=== PATIENT | male | born 1955 | race Caucasian/White ===

== ENCOUNTER 2017-06-09 12:04 | Emergency (ER) | payer SELFPAY ==
[2017-06-09] MEDS ORDERED: NARCAN INJ IVP ONE ×2 (12:10→12:11)
[2017-06-09] MEDS ORDERED: ROMAZICON INJ 0.5 MG IVP ONE ×2 (12:11→12:19)
[2017-06-09] MEDS ORDERED: NARCAN INJ ONE (12:13)
[2017-06-09 12:14] VITALS: BMI 32.8
[2017-06-09] MEDS ORDERED: ROMAZICON INJ 0.5 MG ONE (12:14)
--- NOTE | 2017-06-09 12:20 | DR.GENAD ---
HPI - Complaint/Symptoms Chief Complaint Doctors Comments: Patient presented Via EMS with possible ingestion of narcotic medication. He was at [facility] ED on yesterday for headache. He presents today sedated, responsive to painful stimuli and minimal results to Narcan and flumazinil. Family members states that patient c/ o severe headache this morning with profuse sweating. He requested to come to the ED today. Past medical history heart disease with stents (3-4) a three pack per day smoker. He is trucking manager by trade. PMH - PMH Past Medical History: Coronary Artery Disease, Hypertension, [place] Past Surgical History: Yes Surgical History: Angioplasty/Stents - Family History Family Medical History: Cancer, Hypertension - Social History Do you use any recreational Drugs:: No ROS - Review of Systems Eyes: No Symptoms Reported ENTM: No Symptoms Reported Respiratoy: No Symptoms Reported Cardiovascular: No Symptoms Reported Gastrointestinal/Abdominal: No Symptoms Reported Genitourinary: No Symptoms Reported Neurological: No Symptoms Reported Musculoskeletal: No Symptoms Reported Integumentary: No Symptoms Reported Hematologic/Lymphatic: No Symptoms Reported Endocrine: No Symptoms Reported Psychiatric: No Symptoms Reported All Other Systems: Reviewed and Negative PE - Vital Signs Vitals: Temperature 97.5 F Pulse Rate [Apical] 51 Pulse Rate 45 Respiratory Rate 18 Blood Pressure [Right Arm] 169/76 Blood Pressure 166/89 O2 Sat by Pulse Oximetry 95 - General General Appearance: Alert, In No Apparent Distress, Obtunded - Head Head Exam: Normal Inspection, Atraumatic - Eyes Eye exam: Normal Appearance, PERRL, EOMI - ENT ENT Exam: Normal Exam, Normal Oropharynx External Ear Exam: Normal External Inspection TM/Canal Exam: Bilateral Normal Nose Exam: Normal Nose Exam Mouth Exam: Normal Inspection Throat Exam: Normal Inspection - Neck Neck Exam: Normal Inspection - Chest Chest Inspection: Normal Inspection - Respiratory Respiratory Exam: Normal Lung Sounds Bilat Respiratory Exam: Bilateral Clear to Auscultation - Cardiovascular Cardiovascular Exam: Regular Rate, Normal Rhythm - Abdominal Exam Abdominal Exam: Normal Inspection, Normal Bowel Sounds Course - Consultation Called: 14:50 (Accepted for transfer ([facility])) ROR - Labs Reviewed Result Diagrams: 06/09/17 12:15 06/09/17 12:15 Laboratory: WBC 9.6 X10^3/uL (3.6-10.0) 06/09/17 12:15 RBC 6.43 X10^6/uL (4.7-6.0) H 06/09/17 12:15 Hgb 19.8 g/dL (13.5-18.0) H* 06/09/17 12:15 Hct 57.3 % (42.0-54.0) H* 06/09/17 12:15 MCV 89.1 fL (80.0-100.0) 06/09/17 12:15 MCH 30.7 pg (27.0-34.0) 06/09/17 12:15 MCHC 34.5 g/dL (33.0-35.0) 06/09/17 12:15 RDW 13.6 % (11.6-16.5) 06/09/17 12:15 Plt Count 156 X10^3/uL (150.0-450.0) 06/09/17 12:15 Plt Count Comment Adequate (ADEQUATE) 06/09/17 12:15 MPV 8.4 fL (7.4-11.0) 06/09/17 12:15 Neut % 78.9 % (42.0-75.0) H 06/09/17 12:15 Lymph % 13.1 % (21.0-51.0) L 06/09/17 12:15 [place] % 6.4 % (0.0-13.0) 06/09/17 12:15 Eos % 0.7 % (0.9-2.9) L 06/09/17 12:15 Baso % 0.9 % (0.2-1.0) 06/09/17 12:15 Neut # 7.6 x10^3/uL (2.2-4.8) H 06/09/17 12:15 Lymph # 1.3 X10^3/uL (1.3-2.9) 06/09/17 12:15 [place] # 0.6 x10^3/uL (0.3-0.8) 06/09/17 12:15 Eos # 0.1 x10^3/uL (0.0-0.2) 06/09/17 12:15 Baso # 0.1 X10^3/uL (0.0-0.1) 06/09/17 12:15 Absolute Nucleated RBC 0.1 /100WBC 06/09/17 12:15 Plt Morphology Comment Normal (NORMAL) 06/09/17 12:15 RBC Morphology Normal (NORMAL) 06/09/17 12:15 INR Target Range - 06/09/17 12:15 INR 0.98 (0.8-1.3) 06/09/17 12:15 Sodium 134 mmol/L (136-145) L 06/09/17 12:15 Corrected Sodium 137 mmol/L (136-145) 06/09/17 12:15 Potassium 3.5 mmol/L (3.5-5.1) 06/09/17 12:15 Chloride 97 mmol/L (98-107) L 06/09/17 12:15 Carbon Dioxide 30.5 mmol/L (21-32) 06/09/17 12:15 BUN 24 mg/dL (7-18) H 06/09/17 12:15 Creatinine 1.97 mg/dL (0.70-1.30) H 06/09/17 12:15 Est GFR (MDRD) Af Amer 45 (>60) L 06/09/17 12:15 Est GFR (MDRD) Non-Af 37 (>60) L 06/09/17 12:15 Glucose 230 mg/dL (65-99) H 06/09/17 12:15 Calcium 9.0 mg/dL (8.5-10.1) 06/09/17 12:15 Specimen Type Catherized urine 06/09/17 12:38 Urine Color Yellow (YELLOW) 06/09/17 12:38 Urine Appearance Slightly hazy (CLEAR) 06/09/17 12:38 Urine pH 5.0 (5.0 - 8.0) 06/09/17 12:38 Ur Specific [place] 1.025 (1.000-1.030) 06/09/17 12:38 Urine Protein 3+ (NEGATIVE) 06/09/17 12:38 Urine Glucose (UA) 2+ (NEGATIVE) 06/09/17 12:38 Urine Ketones Negative (NEGATIVE) 06/09/17 12:38 Urine Occult Blood 3+ (NEGATIVE) 06/09/17 12:38 Urine Nitrite Negative (NEGATIVE) 06/09/17 12:38 Urine Bilirubin Negative (NEGATIVE) 06/09/17 12:38 Urine Urobilinogen Normal (NORMAL) 06/09/17 12:38 Ur Leukocyte Esterase 1+ (NEGATIVE) 06/09/17 12:38 Urine RBC 01 - 04 /HPF (NEGATIVE) 06/09/17 12:38 Urine WBC Rare /HPF (NEGATIVE) 06/09/17 12:38 Ur Squamous Epith Cells Few /HPF (NEGATIVE) 06/09/17 12:38 Ur Renal Epithelial Cell Rare /HPF (NEGATIVE) 06/09/17 12:38 Amorphous Sediment 2+ /HPF (NEGATIVE) 06/09/17 12:38 Urine Bacteria Negative /HPF (NEGATIVE) 06/09/17 12:38 Hyaline Casts Few /LPF (NEGATIVE) 06/09/17 12:38 Ur Culture Indicated? No/not indicated 06/09/17 12:38 Urine Opiates Screen Negative (NEG=<300) 06/09/17 12:38 Urine Methadone Screen Negative (NEG=<300) 06/09/17 12:38 Ur Barbiturates Screen Negative (NEG=<200) 06/09/17 12:38 Ur Phencyclidine Scrn Negative (NEG=<25) 06/09/17 12:38 Ur Amphetamines Screen Negative (NEG=<1000) 06/09/17 12:38 U Benzodiazepines Scrn Negative (NEG=<200) 06/09/17 12:38 Urine Cocaine Screen Negative (NEG=<300) 06/09/17 12:38 U Marijuana (THC) Screen Negative (NEG=<50) 06/09/17 12:38 - XRAY XRAY Interpreted by: Radiologist (CT Brain w/o:Findings suggestive of a large acute nonhemorrhage CVA in the distribution of the right middle cerebral artery with findings of edema that had ceveloped since the prior examination 06/08/17 performed at [facility]) - Diagnosis Discharge Problem: Non-hemorrhagic cerebrovascular accident (CVA) - Discharge Plan Condition: Stable - Follow ups/Referrals Follow ups/Referrals: MERRILL HOOK [Primary Care Provider] - 3 days - Instructions
[2017-06-09 12:24] LABS: BASOPHILS # (AUTO) 0.1 X10^3/uL (0.0-0.1); BASOPHILS % (AUTO) 0.9 % (0.2-1.0); EOSINOPHILS # (AUTO) 0.1 x10^3/uL (0.0-0.2); EOSINOPHILS % (AUTO) 0.7 % (0.9-2.9); LYMPHOCYTES % (AUTO) 13.1 % (21.0-51.0); MEAN PLATELET VOLUME 8.4 fL (7.4-11.0); MONOCYTES # (AUTO) 0.6 x10^3/uL (0.3-0.8); MONOCYTES % (AUTO) 6.4 % (0.0-13.0); NEUTROPHILS % (AUTO) 78.9 % (42.0-75.0)
[2017-06-09 12:29] LABS: CARBON DIOXIDE 30.5 mmol/L (21-32); CREATININE 1.97 mg/dL (0.70-1.30)
[2017-06-09 12:36] LABS: LYMPHOCYTES # (AUTO) 1.3 X10^3/uL (1.3-2.9); MEAN CORPUSCULAR HEMOGLOBIN 30.7 pg (27.0-34.0); MEAN CORPUSCULAR HGB CONC 34.5 g/dL (33.0-35.0); MEAN CORPUSCULAR VOLUME 89.1 fL (80.0-100.0); NEUTROPHILS # (AUTO) 7.6 x10^3/uL (2.2-4.8); PLATELET COUNT 156 X10^3/uL (150.0-450.0); RED BLOOD COUNT 6.43 X10^6/uL (4.7-6.0); RED CELL DISTRIBUTION WIDTH 13.6 % (11.6-16.5); WHITE BLOOD COUNT 9.6 X10^3/uL (3.6-10.0)
[2017-06-09] MEDS ORDERED: NS 1000 ML 1,000 ML ONE (12:43)
[2017-06-09 12:55] LABS: HEMATOCRIT 57.3 % (42.0-54.0); HEMOGLOBIN 19.8 g/dL (13.5-18.0)
[2017-06-09 12:59] LABS: PLATELET MORPHOLOGY COMMENT NORMAL (NORMAL)
[2017-06-09] MEDS ORDERED: NS 1000 ML 1,000 ML IV SCH (13:00)
[2017-06-09 13:08] LABS: BILIRUBIN,URINE NEGATIVE (NEGATIVE); BLOOD/HEMOGLOBIN,URINE 3+ (NEGATIVE); GLUCOSE, URINE 2+ (NEGATIVE); KETONES,URINE NEGATIVE (NEGATIVE); LEUKOCYTE ESTERASE ,URINE 1+ (NEGATIVE); NITRITES,URINE NEGATIVE (NEGATIVE); PROTEIN,URINE 3+ (NEGATIVE); UROBILINOGEN,URINE NORMAL (NORMAL)
[2017-06-09 13:15] LABS: APPEARANCE,URINE SLIGHTLY HAZY (CLEAR); COLOR,URINE YELLOW (YELLOW)
[2017-06-09 13:25] LABS: AMORPHOUS SEDIMENT,UR 2+ /HPF (NEGATIVE); BACTERIA,URINE NEGATIVE /HPF (NEGATIVE); RENAL EPITHELIAL CELLS,URINE RARE /HPF (NEGATIVE); SQUAMOUS EPITHELIAL CELL,UR FEW /HPF (NEGATIVE)
[2017-06-09 13:26] LABS: HYALINE CASTS, URINE FEW /LPF (NEGATIVE)
--- NOTE | 2017-06-09 14:37 | CT ---
HISTORY: Severe headache Study: CT head without contrast Comparison: 06/08/2017 performed at [facility] Technique: Axial noncontrast images with coronal and sagittal reformats. Dose reduction procedures we re used with mA/kv adjusted for body size. Findings: The ventricles are normal in size shape and position. There has been interval development since the p rior examination of a large area of decreased attenuation in the distribution of the right middle cer ebral artery. This is most consistent with edema secondary to a recent nonhemorrhagic CVA. There is n o evidence for hemorrhage, mass lesion, or extra-axial fluid collection. No sinuses visualized were c lear. IMPRESSION: Findings suggestive of a large acute nonhemorrhagic CVA in the distribution of the right middle cereb ral artery with findings of edema that had developed since the prior examination 06/08/2017 performed at [facility]. Reported By:
[2017-06-09 14:51] LABS: ALANINE AMINOTRANSFERASE 49 Units/L (12-78); ALKALINE PHOSPHATASE 85 Units/L (46-116); ASPARTATE AMINO TRANSFERASE 55 Units/L (15-37); BILIRUBIN,DIRECT 0.16 mg/dL (0-0.2); MAGNESIUM 2.1 mg/dL (1.7-2.9); TOTAL PROTEIN 7.6 g/dL (6.4-8.2); TROPONIN I < 0.02 ng/mL (0-1.5)
[2017-06-09 14:58] LABS: CKMB % 1.1 % (<4); CREATINE KINASE 1309 Units/L (39-308)
[2017-06-09 15:02] VITALS: BP 162/102
[2017-06-09] MEDS ORDERED: DIPRIVAN VIAL IVP PRN (15:30)
[2017-06-09] MEDS ORDERED: VERSED IM ONE (15:34)
== END 2017-06-09 15:45 | disposition short-term general hospital (02) ==
LOC: ER 12:11
DX: I63.8 Other cerebral infarction (principal)
CPT/HCPCS: 36415; 51701; 70450; 80048; 80076; 80307; 81001; 82550; 82553; 83735; 84484; 85025; 85610; 93005; 93010; 96365; 96367; 96374; 96375; 99284; 99285; A4222; G0434; J2250; J2310; J3490

== ENCOUNTER 2017-10-21 16:04 | Emergency (ER) | payer SELFPAY ==
[2017-10-21 16:14] VITALS: BMI 29.2
--- NOTE | 2017-10-21 16:58 | DR.GENAD ---
HPI - PCP Primary Care Physician: maninder alejandro - HPI Comment HPI Comment: HISTORY BELOW. - Complaint/Symptoms Chief Complaint Doctors Comments: PATIENT HAD NUMBNESS TO HIS LEFT SIDE, FACE AND ARM MAINIG. AT THAT TIME, WHEN HE DRANK WATER, THE WATER CAME BACK OUT AND COULD NOT SWALLOW IT. THIS RESOLVE. TODAY THE WHOLE LEFT SIDE IS NUMB AND WEAK. NO DYSPHAGIA. HAD RECENT BLOOD CLOT. Chief Complaint:: patient stated his face got knumb 2 days ago and he drink some water and it came back up. Self Treatment fo Chief Complaint: pt had a blood clot in his brain 5 months ago and was flew to [place] - Nurses notes reviewed Nurses Notes Review: Yes - Source History Provided: Patient - Mode of Arrival Mode of Arrival: Ambulatory - Timing Onset of Chief Complaint: 10/19/17 Came on: Suddenly - Duration Duration: Constant Duration: Hours - Severity Severity: Severe PMH - PMH Past Medical History: Yes Past Medical History: Coronary Artery Disease, Hypertension, [place] Past Surgical History: Yes Surgical History: Angioplasty/Stents - Family History History of Family Medical Conditions: Yes Family Medical History: Cancer, Hypertension - Social History Does patient currently use any type of tobacco product: Yes Have you used tobacco products in the last 12 months: Yes Type of Tobacco Use: Cigarettes How many years tobacco product used: 40 Does any household member use tobacco: No Alcohol Use: None Do you use any recreational Drugs:: No Lives With: Family Lives Where: Home - infectious screening In the last 2 months have you had wt loss of >10#?: NO Have you had fever, night sweats or hemotysis?: No Have you traveled outside the country in the last 6 months?: No Isolation: Standard ROS - Review of Systems Constitutional: Weakness, Fatigue Eyes: No Symptoms Reported ENTM: No Symptoms Reported Respiratoy: No Symptoms Reported Cardiovascular: No Symptoms Reported Gastrointestinal/Abdominal: No Symptoms Reported Genitourinary: No Symptoms Reported Neurological: Numbness, Paresthesia, Problems Walking. negative: Pre-existing Deficit Musculoskeletal: No Symptoms Reported Integumentary: No Symptoms Reported Hematologic/Lymphatic: No Symptoms Reported Endocrine: No Symptoms Reported All Other Systems: Reviewed and Negative PE - Vital Signs Vitals: Temperature 98.7 F Pulse Rate [Right Brachial] 74 Pulse Rate 80 Respiratory Rate 20 Blood Pressure [Right Arm] 176/104 Blood Pressure 159/98 O2 Sat by Pulse Oximetry 97 - General Limitations: No Limitations General Appearance: Alert - Head Head Exam: Normal Inspection - Eyes Eye exam: Normal Appearance - ENT ENT Exam: Normal External Ear Exam External Ear Exam: Normal External Inspection TM/Canal Exam: Bilateral Normal Nose Exam: Normal Nose Exam Mouth Exam: Normal Inspection Throat Exam: Normal Inspection - Neck Neck Exam: Normal Inspection, Trachea Midline - Chest Chest Inspection: Symmetric Chest Wall Rise - Respiratory Respiratory Exam: Normal Lung Sounds Bilat Respiratory Exam: Bilateral Clear to Auscultation - Cardiovascular Cardiovascular Exam: Regular Rate, Normal Rhythm, Normal Heart Sounds - Abdominal Exam Abdominal Exam: Normal Bowel Sounds, Soft, Tenderness - Extremities Extremities Exam: Normal Inspection - Back Back Exam: Normal Inspection - Neurologic Neurological Exam: Alert, Oriented X3, CN II-XII Intact. negative: Motor Sensory Deficit - Psychiatric Psychiatric Exam: Normal Affect, Normal Mood - Skin Skin Exam: Normal Color MDM - Additional Information Additional Information Obtained From: Family - Differential Diagnosis Differential Diagnosis: PARESTHESIA, NUMBNESS, CVA Course - Treatment Treatment: SEE ORDERS. - Education/Counseling Education/Counseling: Patient, Family Educated On: Treatment, Diagnosis ROR - Labs Reviewed Laboratory Results Reviewed?: Yes Result Diagrams: 10/21/17 17:09 10/21/17 17:09 Laboratory: WBC 7.1 X10^3/uL (3.6-10.0) 10/21/17 17:09 RBC 6.34 X10^6/uL (4.7-6.0) H 10/21/17 17:09 Hgb 19.6 g/dL (13.5-18.0) H* 10/21/17 17:09 Hct 56.5 % (42.0-54.0) H* 10/21/17 17:09 MCV 89.1 fL (80.0-100.0) 10/21/17 17:09 MCH 30.9 pg (27.0-34.0) 10/21/17 17:09 MCHC 34.7 g/dL (33.0-35.0) 10/21/17 17:09 RDW 13.1 % (11.6-16.5) 10/21/17 17:09 Plt Count 158 X10^3/uL (150.0-450.0) 10/21/17 17:09 MPV 8.7 fL (7.4-11.0) 10/21/17 17:09 Neut % 66.8 % (42.0-75.0) 10/21/17 17:09 Lymph % 22.8 % (21.0-51.0) 10/21/17 17:09 [place] % 7.4 % (0.0-13.0) 10/21/17 17:09 Eos % 2.2 % (0.9-2.9) 10/21/17 17:09 Baso % 0.8 % (0.2-1.0) 10/21/17 17:09 Neut # 4.8 x10^3/uL (2.2-4.8) 10/21/17 17:09 Lymph # 1.6 X10^3/uL (1.3-2.9) 10/21/17 17:09 [place] # 0.5 x10^3/uL (0.3-0.8) 10/21/17 17:09 Eos # 0.2 x10^3/uL (0.0-0.2) 10/21/17 17:09 Baso # 0.1 X10^3/uL (0.0-0.1) 10/21/17 17:09 Absolute Nucleated RBC 0.4 /100WBC 10/21/17 17:09 Sodium 139 mmol/L (136-145) 10/21/17 17:09 Corrected Sodium TNP 10/21/17 17:09 Potassium 3.8 mmol/L (3.5-5.1) 10/21/17 17:09 Chloride 101 mmol/L (98-107) 10/21/17 17:09 Carbon Dioxide 29.7 mmol/L (21-32) 10/21/17 17:09 BUN 30 mg/dL (7-18) H 10/21/17 17:09 Creatinine 1.84 mg/dL (0.70-1.30) H 10/21/17 17:09 Est GFR (MDRD) Af Amer 48 (>60) L 10/21/17 17:09 Est GFR (MDRD) Non-Af 40 (>60) L 10/21/17 17:09 Glucose 90 mg/dL (65-99) 10/21/17 17:09 Calcium 8.7 mg/dL (8.5-10.1) 10/21/17 17:09 Corrected Calcium TNP 10/21/17 17:09 Total Bilirubin 0.60 mg/dL (0.2-1.0) 10/21/17 17:09 AST 32 Units/L (15-37) 10/21/17 17:09 ALT 34 Units/L (12-78) 10/21/17 17:09 Alkaline Phosphatase 72 Units/L (46-116) 10/21/17 17:09 Creatine Kinase 426 Units/L (39-308) H 10/21/17 17:09 CK-MB (CK-2) 10.1 ng/mL (0-4.0) H* 10/21/17 17:09 CK/CKMB % Calc 2.4 % (<4) 10/21/17 17:09 Troponin I < 0.02 ng/mL (0-1.5) 10/21/17 17:09 Total Protein 7.4 g/dL (6.4-8.2) 10/21/17 17:09 Albumin 3.6 g/dL (3.4-5.0) 10/21/17 17:09 Globulin 3.8 g/dL (2.5-4.5) 10/21/17 17:09 Albumin/Globulin Ratio 0.9 Ratio (1.1-2.1) L 10/21/17 17:09 - XRAY XRAY Interpreted by: Radiologist XRAY Findings: REPORT DISCUSS WITH PATIENT. - EKG Rhythm: NSR (EKG NOTED) - Diagnosis Discharge Problem: Paresthesia, Numbness, Polycythemia - Discharge Plan Disposition: 01 HOME, SELF-CARE Condition: Stable - Follow ups/Referrals Follow ups/Referrals: MERRILL HOOK [Primary Care Provider] - 10/22/17 - Instructions Instructions: Paresthesia Additional Instructions: RETURN TO ED IF WORSE. YOU ALSO HAVE ELEVATED RED BLOOD CELL COUNT.
[2017-10-21 17:40] LABS: BLOOD UREA NITROGEN 30 mg/dL (7-18); CALCIUM 8.7 mg/dL (8.5-10.1); CARBON DIOXIDE 29.7 mmol/L (21-32); CHLORIDE 101 mmol/L (98-107); CREATININE 1.84 mg/dL (0.70-1.30); SODIUM 139 mmol/L (136-145); eGFR BLACK RACES 48 (>60); eGFR NON BLACK RACES 40 (>60)
--- NOTE | 2017-10-21 17:51 | CT ---
HISTORY: Left-sided weakness and facial numbness Study: CT brain without contrast Comparison: June 09, 2017 Technique: Multiple axial images of the brain were obtained from the skull base to the vertex withou t administration of IV contrast. AEC was utilized. Findings: No acute intraparenchymal hemorrhage or mass can be identified. No extra-axial fluid collections are seen. No alteration in the attenuation of the brain parenchyma can be identified to suggest acute o r subacute ischemic change. There is a now chronic appearing right temporal lobe infarct with ex vac uo change involving the right lateral ventricle. A small old right cerebellar infarct is noted as wel l. The extracranial structures are grossly unremarkable. IMPRESSION: Chronic ischemic changes without acute intracranial process. Reported By:
[2017-10-21 18:01] LABS: ALANINE AMINOTRANSFERASE 34 Units/L (12-78); ALBUMIN 3.6 g/dL (3.4-5.0); ALKALINE PHOSPHATASE 72 Units/L (46-116); ASPARTATE AMINO TRANSFERASE 32 Units/L (15-37); CREATINE KINASE 426 Units/L (39-308); TOTAL PROTEIN 7.4 g/dL (6.4-8.2)
[2017-10-21 18:02] LABS: BASOPHILS # (AUTO) 0.1 X10^3/uL (0.0-0.1); BASOPHILS % (AUTO) 0.8 % (0.2-1.0); EOSINOPHILS # (AUTO) 0.2 x10^3/uL (0.0-0.2); EOSINOPHILS % (AUTO) 2.2 % (0.9-2.9); LYMPHOCYTES # (AUTO) 1.6 X10^3/uL (1.3-2.9); LYMPHOCYTES % (AUTO) 22.8 % (21.0-51.0); MEAN CORPUSCULAR HEMOGLOBIN 30.9 pg (27.0-34.0); MEAN CORPUSCULAR HGB CONC 34.7 g/dL (33.0-35.0); MEAN CORPUSCULAR VOLUME 89.1 fL (80.0-100.0); MEAN PLATELET VOLUME 8.7 fL (7.4-11.0); MONOCYTES # (AUTO) 0.5 x10^3/uL (0.3-0.8); MONOCYTES % (AUTO) 7.4 % (0.0-13.0); NEUTROPHILS # (AUTO) 4.8 x10^3/uL (2.2-4.8); NEUTROPHILS % (AUTO) 66.8 % (42.0-75.0); PLATELET COUNT 158 X10^3/uL (150.0-450.0); RED BLOOD COUNT 6.34 X10^6/uL (4.7-6.0); RED CELL DISTRIBUTION WIDTH 13.1 % (11.6-16.5); WHITE BLOOD COUNT 7.1 X10^3/uL (3.6-10.0)
[2017-10-21 18:05] LABS: HEMOGLOBIN 19.6 g/dL (13.5-18.0)
[2017-10-21 18:45] LABS: CKMB % 2.4 % (<4)
[2017-10-21 19:00] LABS: TROPONIN I < 0.02 ng/mL (0-1.5)
[2017-10-21 19:02] LABS: CREATINE KINASE MB 10.1 ng/mL (0-4.0)
[2017-10-21 19:14] VITALS: BP 176/104
[2017-10-22 14:33] LABS: HEMATOCRIT 56.5 % (42.0-54.0)
== END 2017-10-21 19:14 | disposition home or self-care (01) ==
LOC: ER 16:15
DX: R20.2 Paresthesia of skin (principal); R20.0 Anesthesia of skin; D75.1 Secondary polycythemia
CPT/HCPCS: 36415; 70450; 80053; 82550; 82553; 84484; 85025; 93005; 93010; 99283; 99285